=== PATIENT | female | born 1970 | race Caucasian/White ===

== ENCOUNTER 2018-09-14 18:14 | Emergency (ER) | payer MEDICAID ==
[~2018-09-14] VITALS: Ht 175.3 cm; Wt 65.9 kg
[2018-09-14 18:24] VITALS: Ht 175.3 cm; Wt 65.9 kg
[2018-09-14] MEDS ORDERED: SINGULAIR10 MG PO (18:26)
[2018-09-14] MEDS ORDERED: HYDROCODON-ACE1 EA10 PO (18:26)
[2018-09-14] MEDS ORDERED: LEVOXYL75 MCG PO (18:27)
[2018-09-14] MEDS ORDERED: PROTONIX20 MG PO (18:27)
[2018-09-14] MEDS ORDERED: ZOFRAN4 MG PO (18:27)
[2018-09-14] MEDS ORDERED: EPIPEN 2-P0.3 MG/0.3 IM (18:28)
[2018-09-14] MEDS ORDERED: KLONOPIN0.5 MG PO (18:28)
[2018-09-14] MEDS ORDERED: TOPROL XL50 MG PO (18:28)
[2018-09-14] MEDS ORDERED: ALBUTEROL SULF8.5 GM INH (18:28)
[2018-09-14] MEDS ORDERED: KENALOG-4040 MG/ML IM (18:29)
[2018-09-14] MEDS ORDERED: TORADOL10 MG PO (19:51)
[2018-09-14] MEDS ORDERED: ROBAXIN500 MG PO (19:51)
[2018-09-14] MEDS ORDERED: ARTHROTEC 501 TAB.EC PO (20:21)
[2018-09-14 20:34] VITALS: BP 128/79
== END 2018-09-14 20:35 | disposition home or self-care (01) ==
LOC: D.ER 18:14
DX: S16.1XXA Strain of muscle, fascia and tendon at neck level, initial encounter (principal); V49.3XXA Car occupant (driver) (passenger) injured in unspecified nontraffic accident, initial encounter; Y93.89 Activity, other specified; Y92.410 Unspecified street and highway as the place of occurrence of the external cause; M54.12 Radiculopathy, cervical region

== ENCOUNTER 2019-01-16 13:09 | Emergency (ER) | payer MEDICAID ==
[~2019-01-16] VITALS: Ht 175.3 cm; Wt 72.3 kg
[~2019-01-16 13:09] MED LIST: ALBUTEROL SULF8.5 GM INH; ARTHROTEC 501 TAB.EC PO; EPIPEN 2-P0.3 MG/0.3 IM; HYDROCODON-ACE1 EA10 PO; KENALOG-4040 MG/ML IM; KLONOPIN0.5 MG PO; LEVOXYL75 MCG PO; PROTONIX20 MG PO; ROBAXIN500 MG PO; SINGULAIR10 MG PO; TOPROL XL50 MG PO; TORADOL10 MG PO; ZOFRAN4 MG PO
[2019-01-16 13:26] VITALS: Ht 175.3 cm; Wt 72.3 kg
[2019-01-16] MEDS ORDERED: PREDNISONE20 MG PO (14:42)
[2019-01-16] MEDS ORDERED: IBUPROFEN800 MG PO (14:42)
[2019-01-16 15:19] VITALS: BP 125/71
== END 2019-01-16 15:19 | disposition home or self-care (01) ==
LOC: D.ER 13:09
DX: S69.91XA Unspecified injury of right wrist, hand and finger(s), initial encounter (principal); X50.1XXA Overexertion from prolonged static or awkward postures, initial encounter; Y93.9 Activity, unspecified; J44.9 Chronic obstructive pulmonary disease, unspecified; F32.9 Major depressive disorder, single episode, unspecified

== ENCOUNTER 2019-04-28 17:50 | Emergency (ER) | payer MEDICAID ==
[2019-01-16 13:26] VITALS: BMI 23.5
[~2019-04-28 17:50] MED LIST changes: +IBUPROFEN800 MG PO; +PREDNISONE20 MG PO
== END 2019-04-28 19:01 | disposition home or self-care (01) ==
LOC: D.ER 17:50
DX: A05.9 Bacterial foodborne intoxication, unspecified (principal)

== ENCOUNTER 2019-09-21 10:58 | Emergency (ER) | payer MEDICAID ==
[~2019-09-21] VITALS: Ht 175.3 cm; Wt 73.6 kg
[2019-09-21 11:03] VITALS: BP 137/77; Ht 175.3 cm; Wt 73.6 kg
[2019-09-21] MEDS ORDERED: CYCLOBENZAPRINE10 MG PO (12:23)
[2019-09-21] MEDS ORDERED: MEDROL DOSE PACK4 MG PO (12:23)
== END 2019-09-21 13:13 | disposition home or self-care (01) ==
LOC: D.ER 10:58
DX: D36.10 Benign neoplasm of peripheral nerves and autonomic nervous system, unspecified (principal); G56.21 Lesion of ulnar nerve, right upper limb; E07.9 Disorder of thyroid, unspecified; J45.909 Unspecified asthma, uncomplicated; Z72.0 Tobacco use